=== PATIENT | female | born 1980 | race American Indian/Alaskan Native ===

== ENCOUNTER 2021-02-07 14:58 | Emergency (ER) | payer OTHER ==
[~2021-02-07] VITALS: Ht 157.5 cm; Wt 102.1 kg
[~2021-02-07 14:58] MED LIST: ALLEGRA ALLERG180 MG PO; AMOX1TAB5 PO; BUCALSEP SPRAY30 ML MM; DICLOFENAC POTA50 MG PO; FERRO-PLEX PO; GILTUSS TR TAB1 EACH PO; NAPR500T14 PO; OXYC1TAB9 PO; TESSALON PERLE100 MG PO; ZITHROMAX TRI-500 MG PO; ZITHROMAX200 MG PO
[2021-02-07] MEDS ORDERED: VISTARIL25 MG PO (16:42)
== END 2021-02-07 17:00 | disposition home or self-care (01) ==
LOC: ER 14:58
DX: R51.9 Headache, unspecified (principal); R00.2 Palpitations; F41.9 Anxiety disorder, unspecified